=== PATIENT | male | born 1990 | race Caucasian/White ===

== ENCOUNTER 2017-05-11 21:04 | Emergency (ER) | payer BC ==
[~2017-05-11 21:04] MED LIST: IBUPROFEN800 MG PO; KEFLEX PO; LORTAB 5/500 TA1 TA1 PO; LORTAB 7.5-5001 TAB PO; NO MEDICATIONS; SYMBYAX PO; VOLTAREN50 MG PO; VOLTAREN75 MG PO
[2017-05-11] MEDS ORDERED: NO MEDICATIONS (21:15)
== END 2017-05-11 21:55 | disposition home or self-care (01) ==
LOC: SED 21:04
DX: J02.0 Streptococcal pharyngitis (principal); F10.10 Alcohol abuse, uncomplicated; F17.210 Nicotine dependence, cigarettes, uncomplicated
CPT/HCPCS: 87880; 99283